=== PATIENT | female | born 1950 | race Caucasian/White ===

== ENCOUNTER → 2018-10-14 | Outpatient (CLI) | payer MEDICARE ==
[~2018-10-14] MED LIST: NO HOME MEDICATIONS; PERCOCET 325 MG1 TA2 PO; ZITHROMAX TRI-500 MG PO
== END ==
LOC: COL.RAD 11:05
DX: Z01.812 Encounter for preprocedural laboratory examination (principal); R63.4 Abnormal weight loss; R10.30 Lower abdominal pain, unspecified
CPT/HCPCS: Q9967

== ENCOUNTER 2021-03-22 06:47 | Day surgery (SDC) | payer MEDICARE ==
[~2021-03-22] VITALS: Ht 157.5 cm; Wt 45.8 kg
[2021-03-22] MEDS ORDERED: SINGULAIR 110 MG/TAB PO (06:58)
[2021-03-22] MEDS ORDERED: NEURONTIN300 MG/CAP PO (06:59)
[2021-03-22] MEDS ORDERED: ROBINUL FORTE2 MG PO (06:59)
[2021-03-22] MEDS ORDERED: LIPITOR 40MG TA40 MG PO (06:59)
[2021-03-22] MEDS ORDERED: FOSAMAX 70MG TA70 MG PO (07:00)
[2021-03-22 07:06] VITALS: BP 118/65; PULSE 69; TEMP 97.5
[2021-03-22 08:30] VITALS: BP 126/63; PULSE 60; TEMP 97.7
--- NOTE | 2021-03-22 08:30 | NUR ---
0830- PATIENT BROUGHT BACK TO [facility] VIA CART. AMBULATED TO CHAIR WITH ASSIST. PLACED ON MONITORS, VITAL SIGNS STABLE. IV INFUSING. AT BEDSIDE TO DRIVE HOME. KIT RN AT BEDSIDE FOR REPORT. PATIENT STATES SHE IS NOT READY FOR DRINK OR FOOD AT THIS TIME. DR. RIVAS SPOKE WITH IN REGARDS TO RESULTS. WARM BLANKET PROVIDED, CALL BAPTISTE WITHIN REACH. WILL MONITOR. 0845- VITAL SIGNS STABLE. WILL MONITOR. 0900- PATIENT STATES SHE WOULD LIKE TO GO HOME AT THIS TIME. IV REMOVED, INTACT. PATIENT TO GET DRESSED AT THIS TIME. 0914- PATIENT BROUGHT DOWN TO [facility] VIA WHEEL CHAIR. ALL BELONGINGS IN HAND. PUT IN HUSBANDS CAR TO DRIVE HOME.
[2021-03-22 08:45] VITALS: BP 130/59; PULSE 56
[2021-03-22 09:00] VITALS: BP 135/65; PULSE 60
== END 2021-03-22 09:14 | disposition home or self-care (01) ==
LOC: SDCO 06:47
DX: R19.5 Other fecal abnormalities (principal); D12.2 Benign neoplasm of ascending colon; D12.5 Benign neoplasm of sigmoid colon; M81.0 Age-related osteoporosis without current pathological fracture; G25.81 Restless legs syndrome; E78.5 Hyperlipidemia, unspecified; R05.9 Cough, unspecified; J31.0 Chronic rhinitis; M54.50 Low back pain, unspecified; Z79.899 Other long term (current) drug therapy; Z90.710 Acquired absence of both cervix and uterus; Z80.3 Family history of malignant neoplasm of breast
CPT/HCPCS: J7120

== ENCOUNTER 2023-02-11 06:15 | Day surgery (SDC) | payer MEDICARE ==
[~2023-02-11] VITALS: Ht 160 cm; Wt 42.0 kg
[~2023-02-11 06:15] MED LIST changes: +FOSAMAX 70MG TA70 MG PO; +LIPITOR 40MG TA40 MG PO; +NEURONTIN300 MG/CAP PO; +PROTONIX20 MG PO; +REQUIP2 MG PO; +ROBINUL FORTE2 MG PO; +SINGULAIR 110 MG/TAB PO
[2023-02-11] MEDS ORDERED: LIPITOR20 MG PO (07:46)
[2023-02-11 07:55] VITALS: BP 108/66; PULSE 72; TEMP 97.2
[2023-02-11 08:40] VITALS: BP 108/58; PULSE 72; TEMP 97.9
[2023-02-11 08:55] VITALS: BP 113/72; PULSE 72
[2023-02-11 09:10] VITALS: BP 114/58; PULSE 73
[2023-02-11 09:25] VITALS: BP 117/56; PULSE 74
--- NOTE | 2023-02-11 13:19 | NUR ---
8591-5647: PT TO NEGATIVE ISOLATION ROOM IN PACU (BAY6) FROM BRONCHOSCOPY WITH WASHINGS. FREQUENT COUGHING, BUT OTHERWISE DENIES COMPLAINT. VSS ON RA. RT ARRIVING AT TIME OF HANDOFF TO ADMIN NEBULIZER WHICH WAS EFFECTIVE IN REDUCING COUGH AND IMPROVING RESPIRATORY COMFORT. LOADING DOSE OF PO ABX ADMIN ORDERED - TOLERATED WELL. RECEIVED REPORT AND ASSUMED CARE OF PT FROM BOGDAN TELLES IN WR - DRIVING PT HOME UPON DC PROVIDED WATER, TOLERATING WELL, DECLINED FOOD OR BR. PT HAS REMAINED A&O, NAD, VSS ON RA, TOLERATING PO, IS WITHOUT SIGNIFICANT COMPLAINT, WITH STEADY GAIT TO W/C IV D/C'D. D/C INSTRUCTIONS, ANY FOLLOW UP REVIEWED AND HANDED TO PT. ALL QUESTIONS AND CONCERNS ADDRESSED TO PT SATISFACTION. TAKEN TO EXIT VIA W/C WITH ALL BELONGINGS AND PAPERWORK IN HAND, ASSISTED INTO PASSENGER SEAT OF POV. SPOUSE TO DRIVE HOME.
== END 2023-02-11 10:00 | disposition home or self-care (01) ==
LOC: SDCO 06:15
DX: J47.1 Bronchiectasis with (acute) exacerbation (principal); J40 Bronchitis, not specified as acute or chronic; R91.1 Solitary pulmonary nodule; R93.89 Abnormal findings on diagnostic imaging of other specified body structures; Z87.891 Personal history of nicotine dependence
CPT/HCPCS: J2704; J7120